=== PATIENT | male | born 1955 | race African-American/Black ===

== ENCOUNTER 2017-01-14 11:21 | Emergency (ER) | payer OTHER ==
[~2017-01-14 11:21] MED LIST: AMLO5TAB22 PO; BENZ1TAB PO; BUSP10 PO; DOCU1CAP39 PO; GABA300C3 PO; HYDR-3533 PO; LEVA750T PO; NAPR500 PO; OMEP20TA PO; PERP8TAB7 PO; TRAZ100 PO
[2017-01-14 11:25] VITALS: BP 180/88; PULSE 72; RESP 20; TEMP 98.8; O2SAT 99
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
[2017-01-14] MEDS ORDERED: ONDANSETRON HCL 4 MG/2 ML VIAL IV PUSH ONE (12:15)
[2017-01-14 12:40] LABS: AUTOMATED NEUTROPHIL # 3.5 TH/MM3 (1.8-7.7); BASOPHIL % 0.4 % (0.0-2.0); EOSINOPHIL % 0.4 % (0.0-4.0); HEMATOCRIT 50.8 % (39.0-51.0); HEMO FLAGS DIFF FINAL; LYMPH % 25.4 % (9.0-44.0); LYMPHOCYTE # 1.4 TH/MM3 (1.0-4.8); MEAN CORPUSCULAR HEMOGLOBIN 31.7 PG (27.0-34.0); MEAN CORPUSCULAR HGB CONC 33.4 % (32.0-36.0); MONO % 11.4 % (0.0-8.0); NEUT % 62.4 % (16.0-70.0); PLATELET COUNT 142 TH/MM3 (150-450); RED BLOOD COUNT 5.35 MIL/MM3 (4.50-5.90); RED CELL DISTRIBUTION WIDTH 14.2 % (11.6-17.2); WHITE BLOOD COUNT 5.6 TH/MM3 (4.0-11.0)
[2017-01-14 12:49] LABS: AMPHETAMINE, URINE NEG (NEG); BARBITURATES, URINE NEG (NEG); COCAINE, URINE NEG (NEG)
[2017-01-14 13:00] LABS: ALT (GPT) 91 U/L (12-78); ANION GAP 9 MEQ/L (5-15); AST (GOT) 59 U/L (15-37); BICARBONATE 23.6 MEQ/L (21.0-32.0); BLOOD UREA NITROGEN 10 MG/DL (7-18); CHLORIDE 105 MEQ/L (98-107); GLOMERULAR FILTRATION RATE 107 ML/MIN (>89); POTASSIUM 4.1 MEQ/L (3.5-5.1); SODIUM (NA) 138 MEQ/L (136-145)
[2017-01-14] MEDS ORDERED: BENZ1TAB PO (13:02)
[2017-01-14] MEDS ORDERED: GABA300C5 PO (13:02)
[2017-01-14] MEDS ORDERED: TRAZ100T4 PO (13:02)
[2017-01-14] MEDS ORDERED: BACL10TA PO (13:02)
[2017-01-14] MEDS ORDERED: ESCI10TA PO (13:02)
[2017-01-14] MEDS ORDERED: BUSP15TA PO (13:02)
[2017-01-14] MEDS ORDERED: AMLO5TAB2 PO (13:02)
[2017-01-14] MEDS ORDERED: PERP8TAB4 PO (13:02)
[2017-01-14 13:05] LABS: ALKALINE PHOSPHATASE 81 U/L (45-117); TOTAL BILIRUBIN ADULT 0.7 MG/DL (0.2-1.0)
[2017-01-14 14:10] VITALS: BP 150/80; PULSE 62; RESP 17; O2SAT 98
[2017-01-14 15:10] VITALS: BP 174/77; PULSE 83; RESP 18; O2SAT 99
[2017-01-14 17:39] VITALS: BP 180/73; PULSE 82; RESP 18; O2SAT 99
[2017-01-14 19:56] VITALS: BP 188/88; PULSE 77; RESP 18; O2SAT 99
--- NOTE | 2017-01-15 00:21 | PD ---
Physical Exam Date Seen by Provider: January 15, 2017 Time Seen by Provider: 00:18 Data Data Last Documented VS Vital Signs Date Time Temp Pulse Resp B/P Pulse Ox O2 Delivery O2 Flow Rate FiO2 01/14/17 19:56 77 18 188/88 99 Room Air 01/14/17 11:25 98.8 Orders Complete Blood Count With Diff (01/14/17 12:07) Comprehensive Metabolic Panel (01/14/17 12:07) Psych Screen (01/14/17 12:07) Drug Screen, Random Urine (01/14/17 12:07) Alcohol (Ethanol) (01/14/17 12:07) Ondansetron Inj (Zofran Inj) (01/14/17 12:15) Diet Regular Basic (01/14/17 Dinner) Labs Laboratory Tests Test 01/14/17 12:20 White Blood Count 5.6 TH/MM3 Red Blood Count 5.35 MIL/MM3 Hemoglobin 17.0 GM/DL Hematocrit 50.8 % Mean Corpuscular Volume 95.0 FL Mean Corpuscular Hemoglobin 31.7 PG Mean Corpuscular Hemoglobin 33.4 % Concent Red Cell Distribution Width 14.2 % Platelet Count 142 TH/MM3 Mean Platelet Volume 7.7 FL Neutrophils (%) (Auto) 62.4 % Lymphocytes (%) (Auto) 25.4 % Monocytes (%) (Auto) 11.4 % Eosinophils (%) (Auto) 0.4 % Basophils (%) (Auto) 0.4 % Neutrophils # (Auto) 3.5 TH/MM3 Lymphocytes # (Auto) 1.4 TH/MM3 Monocytes # (Auto) 0.6 TH/MM3 Eosinophils # (Auto) 0.0 TH/MM3 Basophils # (Auto) 0.0 TH/MM3 CBC Comment DIFF FINAL Differential Comment Sodium Level 138 MEQ/L Potassium Level 4.1 MEQ/L Chloride Level 105 MEQ/L Carbon Dioxide Level 23.6 MEQ/L Anion Gap 9 MEQ/L Blood Urea Nitrogen 10 MG/DL Creatinine 0.88 MG/DL Estimat Glomerular Filtration 107 ML/MIN Rate Random Glucose 86 MG/DL Calcium Level 9.9 MG/DL Total Bilirubin 0.7 MG/DL Aspartate Amino Transf 59 U/L (AST/SGOT) Alanine Aminotransferase 91 U/L (ALT/SGPT) Alkaline Phosphatase 81 U/L Total Protein 7.7 GM/DL Albumin 3.8 GM/DL Urine Opiates Screen NEG Urine Barbiturates Screen NEG Urine Amphetamines Screen NEG Urine Benzodiazepines Screen NEG Urine Cocaine Screen NEG Urine Cannabinoids Screen NEG Ethyl Alcohol Level LESS THAN 3 MG/DL MDM Medical Record Reviewed: Yes Supervised Visit with LEW: No Interpretation(s) Laboratory Tests Test 01/14/17 12:20 White Blood Count 5.6 TH/MM3 Red Blood Count 5.35 MIL/MM3 Hemoglobin 17.0 GM/DL Hematocrit 50.8 % Mean Corpuscular Volume 95.0 FL Mean Corpuscular Hemoglobin 31.7 PG Mean Corpuscular Hemoglobin 33.4 % Concent Red Cell Distribution Width 14.2 % Platelet Count 142 TH/MM3 Mean Platelet Volume 7.7 FL Neutrophils (%) (Auto) 62.4 % Lymphocytes (%) (Auto) 25.4 % Monocytes (%) (Auto) 11.4 % Eosinophils (%) (Auto) 0.4 % Basophils (%) (Auto) 0.4 % Neutrophils # (Auto) 3.5 TH/MM3 Lymphocytes # (Auto) 1.4 TH/MM3 Monocytes # (Auto) 0.6 TH/MM3 Eosinophils # (Auto) 0.0 TH/MM3 Basophils # (Auto) 0.0 TH/MM3 CBC Comment DIFF FINAL Differential Comment Sodium Level 138 MEQ/L Potassium Level 4.1 MEQ/L Chloride Level 105 MEQ/L Carbon Dioxide Level 23.6 MEQ/L Anion Gap 9 MEQ/L Blood Urea Nitrogen 10 MG/DL Creatinine 0.88 MG/DL Estimat Glomerular Filtration 107 ML/MIN Rate Random Glucose 86 MG/DL Calcium Level 9.9 MG/DL Total Bilirubin 0.7 MG/DL Aspartate Amino Transf 59 U/L (AST/SGOT) Alanine Aminotransferase 91 U/L (ALT/SGPT) Alkaline Phosphatase 81 U/L Total Protein 7.7 GM/DL Albumin 3.8 GM/DL Urine Opiates Screen NEG Urine Barbiturates Screen NEG Urine Amphetamines Screen NEG Urine Benzodiazepines Screen NEG Urine Cocaine Screen NEG Urine Cannabinoids Screen NEG Ethyl Alcohol Level LESS THAN 3 MG/DL Differential Diagnosis MDM: High Differential diagnoses: Schizophrenia, schizoaffective disorder, bipolar, anxiety, depression, adjustment reaction, mood disorder NOS, ODD, depressive disorder NOS, dementia, dementia with agitation, psychosis NOS, substance induced mood disorder, intermittent explosive disorder, Asperger syndrome, infection,electrolyte abnormality, malingering. Narrative Course Mental health screening discussed with the patient. Psychiatric screen ordered. The patient has been medically cleared. The patient has been seen by the psych screener. There is no indication for admission today. There is no indication for White act at this time patient is not a threat to himself or others. Patient has been given outpatient treatment information by the psych screener. The patient has verbally agreed to follow-up with [facility] the morning. Patient is medically stable for discharge. This is a counter for psychological evaluation. Diagnosis Primary Impression: Encounter for psychological evaluation Additional Impression: Encounter for medication refill Referrals: [facility] (Out patient) 1 day Patient Instructions: General Instructions Additional Instruction: Rest. Follow-up with [facility] in morning. Follow-up with the recommendations of the psych screener. Med/Other Pt SpecificInfo: No Meds Exist/No RX given Disposition: DISCHARGE HOME Condition: Stable Jose Juan Ornelas January 15, 2017 00:21
== END 2017-01-15 01:19 | disposition home or self-care (01) ==
LOC: NEPD 11:21
DX: R11.2 Nausea with vomiting, unspecified (principal); F41.8 Other specified anxiety disorders; B19.20 Unspecified viral hepatitis C without hepatic coma; I10 Essential (primary) hypertension; F20.9 Schizophrenia, unspecified; Z76.0 Encounter for issue of repeat prescription
CPT/HCPCS: 80053; 80307; 85025; 96374; 99283; J2405

== ENCOUNTER 2017-07-15 23:00 | Emergency (ER) | payer OTHER, MEDICAID ==
[~2017-07-15] VITALS: Ht 167.6 cm; Wt 65.9 kg
[~2017-07-15 23:00] MED LIST changes: +AMLO5TAB2 PO; -AMLO5TAB22 PO; +BACL10TA PO; -BUSP10 PO; +BUSP15TA PO; -DOCU1CAP39 PO; +ESCI10TA PO; -GABA300C3 PO; +GABA300C5 PO; -HYDR-3533 PO; -LEVA750T PO; -NAPR500 PO; -OMEP20TA PO; +PERP8TAB4 PO; -PERP8TAB7 PO; -TRAZ100 PO; +TRAZ100T4 PO
[2017-07-15 23:20] VITALS: BP 166/80; PULSE 78; RESP 16; TEMP 97.8; O2SAT 96
--- NOTE | 2017-07-16 00:20 | PD ---
HPI . Alcohol intoxication Chief Complaint: Alcohol/Drug Intoxication Time Seen by Provider: 00:09 Travel History International Travel<30 days: No Contact w/Intl Traveler<30days: No Traveled to known affect area: No History of Present Illness HPI This patient presents as a Marchman Act. He was apparently publicly intoxicated. The officers were concerned for his safety and took out a [place] Act. The patient is complaining with low back pain. PFSH Past Medical History Arthritis: Yes Asthma: Yes Autoimmune Disease: No Blood Disorders: No Bipolar Disorder: Yes Anxiety: Yes Depression: Yes Heart Rhythm Problems: No Cancer: No Cardiovascular Problems: Yes High Cholesterol: Yes Chemotherapy: No Chest Pain: No Congestive Heart Failure: No COPD: No Cerebrovascular Accident: No Diabetes: No Diminished Hearing: No Endocrine: No Gastrointestinal Disorders: Yes (hepatitis C ) GERD: No Glaucoma: No Genitourinary: No Headaches: No Hepatitis: Yes (hepatitis C ) Hiatal Hernia: No Hypertension: Yes Immune Disorder: No Implanted Vascular Access Dvce: No Kidney Stones: No Musculoskeletal: No Neurologic: Yes Psychiatric: Yes (schizophrenia) Reproductive: No Respiratory: Yes Immunizations Current: Yes Migraines: No Myocardial Infarction: No Radiation Therapy: No Renal Failure: No Schizophrenia: Yes Seizures: No Sickle Cell Disease: Yes Sleep Apnea: No Thyroid Disease: No Ulcer: No PNEUMOCCOCAL Vaccine (Year): 1 Past Surgical History Abdominal Surgery: No AICD: No Appendectomy: No Arteriovenous Shunt: No Cardiac Surgery: No Cholecystectomy: No Ear Surgery: No Endocrine Surgery: No Eye Surgery: No Genitourinary Surgery: No Gynecologic Surgery: No Insulin Pump: No Joint Replacement: No Neurologic Surgery: Yes Oral Surgery: No Pacemaker: No Thoracic Surgery: No Other Surgery: Yes Social History Alcohol Use: No (DENIES) Tobacco Use: Yes Substance Use: Yes Allergies-Medications (Allergen,Severity, Reaction): Coded Allergies: aspirin (Unverified Allergy, Severe, Hives, EDEMA, 07/15/17) codeine (Unverified Allergy, Severe, 07/15/17) divalproex sodium (Unverified Allergy, Severe, HALLUCINATIONS, 07/15/17) iodine (Unverified Allergy, Severe, EDEMA, HIVES, 07/15/17) potassium iodide (Unverified Allergy, Severe, EDEMA, HIVES, 07/15/17) povidone-iodine (Unverified Allergy, Severe, EDEMA, HIVES, 07/15/17) risperidone (Unverified Allergy, Severe, 07/15/17) sodium iodide (Unverified Allergy, Severe, EDEMA, HIVES, 07/15/17) sodium iodide (Unverified Allergy, Severe, EDEMA, HIVES, 07/15/17) Reported Meds & Prescriptions Reported Meds & Active Scripts Active Reported Trazodone (Trazodone HCl) 100 Mg Tab 100 Mg PO HS Perphenazine 8 Mg Tab 8 Mg PO DAILY Gabapentin 300 Mg Cap 300 Mg PO TID Escitalopram (Escitalopram Oxalate) 10 Mg Tab 10 Mg PO DAILY Buspirone (Buspirone HCl) 15 Mg Tab 15 Mg PO TID Benztropine (Benztropine Mesylate) 1 Mg Tab 1 Mg PO BID Baclofen 10 Mg Tab 10 Mg PO TID Amlodipine (Amlodipine Besylate) 5 Mg Tab 5 Mg PO DAILY Review of Systems ROS Limitations: Intoxication Physical Exam Narrative GENERAL: Patient is intoxicated. SKIN: Warm and dry. HEAD: Normocephalic/atraumatic. EYES: Pupils are equal. Extraocular movements are intact. ENT: Most of his teeth are missing. NECK: Supple. CARDIOVASCULAR: Heart sounds are normal. RESPIRATORY: Lungs are clear with full air movement throughout. MUSCULOSKELETAL: Atraumatic. NEUROLOGICAL: Nonfocal. PSYCHIATRIC: Intoxicated. Data Data Last Documented VS Vital Signs Date Time Temp Pulse Resp B/P (MAP) Pulse Ox O2 Delivery O2 Flow Rate FiO2 07/15/17 23:20 97.8 78 16 166/80 (108) 96 MDM Medical Decision Making Medical Screen Exam Complete: Yes Emergency Medical Condition: Yes Differential Diagnosis Differential diagnosis of altered mental status includes but is not limited to infection, electrolyte abnormality, neurological event, intoxication Narrative Course Patient presents to us as a Marchman act because of alcohol intoxication. He is sleeping it off. Diagnosis Primary Impression: Alcohol abuse Condition: Stable Christianne Hobson MD Jul 16, 2017 00:20
[2017-07-16] MEDS ORDERED: LORazepam 2 MG/ML VIAL IM ONE (01:15)
[2017-07-16] MEDS ORDERED: HALOPERIDOL LACTATE 5 MG/ML AMP IM ONE (02:15)
== END 2017-07-16 08:16 | disposition home or self-care (01) ==
LOC: NEPD 23:00
DX: F10.129 Alcohol abuse with intoxication, unspecified (principal); M54.5 Low back pain; I10 Essential (primary) hypertension; E78.00 Pure hypercholesterolemia, unspecified; Z72.0 Tobacco use; Z86.2 Personal history of diseases of the blood and blood-forming organs and certain disorders involving the immune mechanism; Z87.39 Personal history of other diseases of the musculoskeletal system and connective tissue; Z87.09 Personal history of other diseases of the respiratory system; Z86.59 Personal history of other mental and behavioral disorders; Z86.79 Personal history of other diseases of the circulatory system; Z87.19 Personal history of other diseases of the digestive system; Z86.19 Personal history of other infectious and parasitic diseases; Z86.69 Personal history of other diseases of the nervous system and sense organs; Y90.4 Blood alcohol level of 80-99 mg/100 ml; G89.29 Other chronic pain
CPT/HCPCS: 96372; 99284; J1630; J2060

== ENCOUNTER 2017-07-16 08:39 | Emergency (ER) | payer OTHER, MEDICAID ==
[2017-07-16 08:41] VITALS: BP 150/77; PULSE 89; RESP 14; TEMP 97.8; O2SAT 98
[2017-07-16 09:05] VITALS: BP 174/79; PULSE 86; RESP 18; O2SAT 98
--- NOTE | 2017-07-16 09:11 | PD ---
HPI Chief Complaint: Altered Mental Status Time Seen by Provider: 09:00 Travel History International Travel<30 days: No Contact w/Intl Traveler<30days: No Traveled to known affect area: No History of Present Illness HPI The patient is a 62-year-old male who presented to the emergency department as a Yahaira's act for alcohol intoxication. The patient was seen last night, no labs were drawn, the patient was allowed to sleep it off. According to nursing staff he was ambulatory in the [facility], however, when discharged the triage staff stated he had difficulty in relating. The patient is oriented to name and year, however, does not know his current location. He does admit to drinking alcohol. He denies any ingestion of any other medications. He does complain of intermittent chronic low back pain but denies any chest pain, shortness breath, nausea, vomiting, or abdominal pain. Symptoms are mild to moderate, possibly exacerbated by alcohol use, and there are no current alleviating factors. PFSH Past Medical History Arthritis: Yes Asthma: Yes Autoimmune Disease: No Blood Disorders: No Bipolar Disorder: Yes Anxiety: Yes Depression: Yes Heart Rhythm Problems: No Cancer: No Cardiovascular Problems: Yes High Cholesterol: Yes Chemotherapy: No Chest Pain: No Congestive Heart Failure: No COPD: No Cerebrovascular Accident: No Diabetes: No Diminished Hearing: No Endocrine: No Gastrointestinal Disorders: Yes (hepatitis C ) GERD: No Glaucoma: No Genitourinary: No Headaches: No Hepatitis: Yes (hepatitis C ) Hiatal Hernia: No Hypertension: Yes Immune Disorder: No Implanted Vascular Access Dvce: No Kidney Stones: No Musculoskeletal: No Neurologic: Yes Psychiatric: Yes (schizophrenia) Reproductive: No Respiratory: Yes Immunizations Current: Yes Migraines: No Myocardial Infarction: No Radiation Therapy: No Renal Failure: No Schizophrenia: Yes Seizures: No Sickle Cell Disease: Yes Sleep Apnea: No Thyroid Disease: No Ulcer: No PNEUMOCCOCAL Vaccine (Year): 1 Past Surgical History Abdominal Surgery: No AICD: No Appendectomy: No Arteriovenous Shunt: No Cardiac Surgery: No Cholecystectomy: No Ear Surgery: No Endocrine Surgery: No Eye Surgery: No Genitourinary Surgery: No Gynecologic Surgery: No Insulin Pump: No Joint Replacement: No Neurologic Surgery: Yes Oral Surgery: No Pacemaker: No Thoracic Surgery: No Other Surgery: Yes Social History Alcohol Use: No (DENIES) Tobacco Use: Yes Substance Use: Yes Allergies-Medications (Allergen,Severity, Reaction): Coded Allergies: aspirin (Unverified Allergy, Severe, Hives, EDEMA, 07/15/17) codeine (Unverified Allergy, Severe, 07/15/17) divalproex sodium (Unverified Allergy, Severe, HALLUCINATIONS, 07/15/17) iodine (Unverified Allergy, Severe, EDEMA, HIVES, 07/15/17) potassium iodide (Unverified Allergy, Severe, EDEMA, HIVES, 07/15/17) povidone-iodine (Unverified Allergy, Severe, EDEMA, HIVES, 07/15/17) risperidone (Unverified Allergy, Severe, 07/15/17) sodium iodide (Unverified Allergy, Severe, EDEMA, HIVES, 07/15/17) sodium iodide (Unverified Allergy, Severe, EDEMA, HIVES, 07/15/17) Reported Meds & Prescriptions Reported Meds & Active Scripts Active Reported Gabapentin 300 Mg Cap 300 Mg PO TID Escitalopram (Escitalopram Oxalate) 10 Mg Tab 10 Mg PO DAILY Buspirone (Buspirone HCl) 15 Mg Tab 15 Mg PO TID Baclofen 10 Mg Tab 10 Mg PO TID Amlodipine (Amlodipine Besylate) 5 Mg Tab 5 Mg PO DAILY Review of Systems Except as stated in HPI: all other systems reviewed are Neg General / Constitutional: No: Fever Cardiovascular: No: Chest Pain or Discomfort Respiratory: No: Shortness of Breath Gastrointestinal: No: Nausea, Vomiting, Abdominal Pain Musculoskeletal: Positive: Pain (chronic low back pain) Psychiatric: Positive: Substance Abuse (alcohol intoxication) Physical Exam Narrative GENERAL: Awake, alert, pleasant 62-year-old male who appears his stated age and is in no acute respiratory distress. SKIN: Focused skin assessment warm/dry. HEAD: Atraumatic. Normocephalic. EYES: Mild injection bilaterally. ENT: No nasal bleeding or discharge. Breath smells of alcohol. NECK: Trachea midline. No JVD. CARDIOVASCULAR: Regular rate and rhythm. No murmur appreciated. RESPIRATORY: No accessory muscle use. Clear to auscultation. Breath sounds equal bilaterally. GASTROINTESTINAL: Abdomen soft, non-tender, nondistended. No rebound tenderness. MUSCULOSKELETAL: No obvious deformities. No clubbing. No cyanosis. No edema. NEUROLOGICAL: Awake and alert. No obvious cranial nerve deficits. Motor grossly within normal limits. Normal speech. Oriented to name and year, but not location. PSYCHIATRIC: Appears intoxicated. Data Data Last Documented VS Vital Signs Date Time Temp Pulse Resp B/P (MAP) Pulse Ox O2 Delivery O2 Flow Rate FiO2 07/16/17 09:05 86 18 174/79 (110) 98 07/16/17 08:41 97.8 Orders Orders Alcohol (Ethanol) (07/16/17 09:05) Basic Metabolic Panel (Bmp) (07/16/17 09:05) Complete Blood Count With Diff (07/16/17 09:05) Ed Discharge Order (07/16/17 10:39) Labs Laboratory Tests Test 07/16/17 09:35 Blood Urea Nitrogen 8 MG/DL Creatinine 0.75 MG/DL Random Glucose 78 MG/DL Calcium Level 8.8 MG/DL Sodium Level 141 MEQ/L Potassium Level 4.7 MEQ/L Chloride Level 106 MEQ/L Carbon Dioxide Level 26.0 MEQ/L Anion Gap 9 MEQ/L Estimat Glomerular Filtration Rate 128 ML/MIN Ethyl Alcohol Level 82 MG/DL [facility] Medical Decision Making Medical Screen Exam Complete: Yes Emergency Medical Condition: Yes Medical Record Reviewed: Yes Interpretation(s) Laboratory Tests Test 07/16/17 09:35 Blood Urea Nitrogen 8 MG/DL Creatinine 0.75 MG/DL Random Glucose 78 MG/DL Calcium Level 8.8 MG/DL Sodium Level 141 MEQ/L Potassium Level 4.7 MEQ/L Chloride Level 106 MEQ/L Carbon Dioxide Level 26.0 MEQ/L Anion Gap 9 MEQ/L Estimat Glomerular Filtration Rate 128 ML/MIN Ethyl Alcohol Level 82 MG/DL Differential Diagnosis Differential diagnosis includes alcohol intoxication, hyponatremia, subdural hemorrhage, delirium, UTI, psychosis, encephalopathy. Narrative Course IV was established, labs were drawn and sent, and the patient was placed on cardiac telemetry monitoring and continuous pulse oximetry monitoring. Alcohol level and sodium level were sent to lab. The patient was able to ambulate to the bathroom and back to the room. Alcohol levels elevated at 82, sodium is normal. Patient is stable for discharge home. We will attempt to arrange transportation and/or ride from family to take the patient home. Diagnosis Primary Impression: Alcohol intoxication Qualified Codes: F10.920 - Alcohol use, unspecified with intoxication, uncomplicated Patient Instructions: General Instructions Additional Instructions: Decrease your alcohol consumption. Follow-up with a primary physician. Return if symptoms worsen or progress. Med/Other Pt SpecificInfo: No Change to Meds Disposition: 01 DISCHARGE HOME Condition: Stable Zeyad Gonzales MD Jul 16, 2017 09:11
[2017-07-16 10:26] LABS: POTASSIUM 4.7 MEQ/L (3.5-5.1)
== END 2017-07-16 12:49 | disposition home or self-care (01) ==
LOC: NEPD 08:39
DX: F10.920 Alcohol use, unspecified with intoxication, uncomplicated (principal); M54.5 Low back pain; G89.29 Other chronic pain; I10 Essential (primary) hypertension; E78.00 Pure hypercholesterolemia, unspecified; Z72.0 Tobacco use; Z86.2 Personal history of diseases of the blood and blood-forming organs and certain disorders involving the immune mechanism; Z87.39 Personal history of other diseases of the musculoskeletal system and connective tissue; Z87.09 Personal history of other diseases of the respiratory system; Z86.59 Personal history of other mental and behavioral disorders; Z86.79 Personal history of other diseases of the circulatory system; Z87.19 Personal history of other diseases of the digestive system; Z86.19 Personal history of other infectious and parasitic diseases; Z86.69 Personal history of other diseases of the nervous system and sense organs
CPT/HCPCS: 80048; 80307; 99283

== ENCOUNTER 2018-01-22 02:58 | Observation (INO) | payer OTHER, MEDICAID ==
[2018-01-22] VITALS (7 sets, daily range): BP systolic 132–150; BP diastolic 67–79; PULSE 64–80; RESP 14–20; TEMP 98.5–98.6; O2SAT 96–100
[~2018-01-22] VITALS: Ht 165.1 cm; Wt 65.0 kg
[~2018-01-22 02:58] MED LIST changes: -BENZ1TAB PO; -PERP8TAB4 PO; -TRAZ100T4 PO
[2018-01-22] MEDS ORDERED: SODIUM CHLORIDE 0.9% FLUSH 10 ML FLUSH IVF PRN (03:15)
--- NOTE | 2018-01-22 03:44 | PD ---
HPI Chief Complaint: Chest Pain Time Seen by Provider: 03:13 Travel History International Travel<30 days: No Contact w/Intl Traveler<30days: No Traveled to known affect area: No History of Present Illness HPI The patient is a 62 year old male who presents to the [facility] emergency department with a history of chest pain that began 2 weeks ago. The patient reports that the location of the pain is in the right side of his chest. He reports the pain is sharp in character and occurs when he takes a breath. He reports that is been constant since the onset. He reports that he has had a cough and congestion over that period of time. He reports that he has had a cough is been productive of yellow sputum. The patient reports that he does smoke a pack of cigarettes per day. He denies any prior history of coronary artery disease, however he does have a history of hypertension. He has an allergy to aspirin. He denies having any known recent fevers. He reports that it does make him feel short of breath as the pain catches his breath. On review of systems otherwise, the patient denies having any neck pain, abdominal pain, vomiting, diarrhea, urinary symptoms, or neurologic symptoms. [facility] Past Medical History Narrative Medical The patient's past medical history is significant for bipolar disorder, arthritis, hyperlipidemia, hepatitis C, hypertension, schizophrenia, sickle cell disease, chronic back pain. Arthritis: Yes Asthma: Yes Autoimmune Disease: No Blood Disorders: No Bipolar Disorder: Yes Anxiety: Yes Depression: Yes Heart Rhythm Problems: No Cancer: No Cardiovascular Problems: Yes High Cholesterol: Yes Chemotherapy: No Chest Pain: No Congestive Heart Failure: No COPD: No Cerebrovascular Accident: No Diabetes: No Diminished Hearing: No Endocrine: No Gastrointestinal Disorders: Yes (hepatitis C ) GERD: No Glaucoma: No Genitourinary: No Headaches: No Hepatitis: Yes (hepatitis C ) Hiatal Hernia: No Heparin Induced Thrombocytopen: No Hypertension: Yes Immune Disorder: No Implanted Vascular Access Dvce: No Kidney Stones: No Musculoskeletal: No Neurologic: Yes Psychiatric: Yes (schizophrenia) Reproductive: No Respiratory: Yes Immunizations Current: Yes Migraines: No Myocardial Infarction: No Radiation Therapy: No Renal Failure: No Schizophrenia: Yes Seizures: No Sickle Cell Disease: Yes Sleep Apnea: No Thyroid Disease: No Ulcer: No Tetanus Vaccination: Unknown Influenza Vaccination: No PNEUMOCCOCAL Vaccine (Year): 1 Past Surgical History Narrative Surgical The patient's past surgical history is significant for neck and back surgery. Abdominal Surgery: No AICD: No Appendectomy: No Arteriovenous Shunt: No Cardiac Surgery: No Cholecystectomy: No Ear Surgery: No Endocrine Surgery: No Eye Surgery: No Genitourinary Surgery: No Gynecologic Surgery: No Insulin Pump: No Joint Replacement: No Neurologic Surgery: Yes Oral Surgery: No Pacemaker: No Thoracic Surgery: No Other Surgery: Yes Social History Alcohol Use: Yes (1-2 beers daily) Tobacco Use: Yes (1 pack per day) Substance Use: No Allergies-Medications (Allergen,Severity, Reaction): Coded Allergies: aspirin (Unverified Allergy, Severe, Hives, EDEMA, 01/22/18) codeine (Unverified Allergy, Severe, 01/22/18) divalproex sodium (Unverified Allergy, Severe, HALLUCINATIONS, 01/22/18) iodine (Unverified Allergy, Severe, EDEMA, HIVES, 01/22/18) potassium iodide (Unverified Allergy, Severe, EDEMA, HIVES, 01/22/18) povidone-iodine (Unverified Allergy, Severe, EDEMA, HIVES, 01/22/18) risperidone (Unverified Allergy, Severe, 01/22/18) sodium iodide (Unverified Allergy, Severe, EDEMA, HIVES, 01/22/18) sodium iodide (Unverified Allergy, Severe, EDEMA, HIVES, 01/22/18) Reported Meds & Prescriptions Reported Meds & Active Scripts Active Reported Gabapentin 300 Mg Cap 300 Mg PO TID Escitalopram (Escitalopram Oxalate) 10 Mg Tab 10 Mg PO DAILY Buspirone (Buspirone HCl) 15 Mg Tab 15 Mg PO TID Baclofen 10 Mg Tab 10 Mg PO TID Amlodipine (Amlodipine Besylate) 5 Mg Tab 5 Mg PO DAILY Review of Systems Except as stated in HPI: all other systems reviewed are Neg General / Constitutional: No: Fever Eyes: No: Visual changes HENT: Positive: Congestion, No: Headaches Cardiovascular: Positive: Chest Pain or Discomfort, No: Dyspnea on exertion Respiratory: Positive: Cough, Shortness of Breath Gastrointestinal: Positive: Nausea, Vomiting, No: Abdominal Pain Genitourinary: No: Dysuria Musculoskeletal: No: Pain Skin: No Rash Neurologic: No: Weakness, Focal Abnormalities, Change in Mentation, Slurred Speech, Sensory Disturbance Psychiatric: No: Depression Endocrine: No: Polydipsia Hematologic/Lymphatic: No: Easy Bruising Physical Exam Narrative General: The patient is a well-developed well-nourished male in no acute distress. Head and Neck exam: Head is normocephalic atraumatic. Eyes: EOMI, pupils are equal round and reactive to light. Nose: Midline septum with pink mucous membranes Mouth: The patient has poor dentition throughout his mouth with multiple areas of decay. The patient has mild gingival erythema, no edema, or kurt abscess formation. Moist mucus membranes. Posterior oropharynx is not erythematous. No tonsillar hypertrophy. Uvula midline. Airway patent. Neck: No palpable lymphadenopathy. No nuchal rigidity. No thyromegaly. Cardiovascular: Regular rate and rhythm without murmurs, gallops, or rubs. No pulse deficit to the extremities on simultaneous auscultation and palpation of his radial artery. The patient denies having any chest wall tenderness on palpation. Lungs: The patient has decreased breath sounds in bilateral lung bases, crackles audible in the right lower lung base. No rhonchi, no wheezes. Abdomen: Soft, without tenderness to palpation in all 4 quadrants of the abdomen. No guarding, rebound, or rigidity. Normal bowel sounds are audible. No tenderness on palpation of McBurney's point. Negative Pate sign. Extremities: No clubbing, cyanosis, or edema. 2+ pulses in all 4 extremities. No calf tenderness on palpation. Back: No spinous process tenderness to palpation. No costovertebral angle tenderness to palpation. Neurologic Exam: Grossly nonfocal. Skin Exam: No rash noted. Intact skin that is warm and dry. Data Data Last Documented VS Vital Signs Date Time Temp Pulse Resp B/P (MAP) Pulse Ox O2 Delivery O2 Flow Rate FiO2 01/22/18 03:14 75 99 Room Air 01/22/18 03:14 20 144/77 (99) 01/22/18 03:01 98.6 Orders Orders Electrocardiogram (01/22/18 03:13) B-Type Natriuretic Peptide (01/22/18 03:13) Ckmb (Isoenzyme) Profile (01/22/18 03:13) Complete Blood Count With Diff (01/22/18 03:13) Comprehensive Metabolic Panel (01/22/18 03:13) Magnesium (Mg) (01/22/18 03:13) Prothrombin Time / Inr (Pt) (01/22/18 03:13) Act Partial Throm Time (Ptt) (01/22/18 03:13) Troponin I (01/22/18 03:13) Lipase (01/22/18 03:13) Chest, Single Ap (01/22/18 03:13) Ecg Monitoring (01/22/18 03:13) Bilateral Bp Monitoring (01/22/18 03:13) Iv Access Insert/Monitor (01/22/18 03:13) Oximetry (01/22/18 03:13) Oxygen Administration (01/22/18 03:13) Sodium Chloride 0.9% Flush (Ns Flush) (01/22/18 03:15) CKMB (01/22/18 03:50) CKMB% (01/22/18 03:50) D-Dimer (01/22/18 04:34) Morphine Inj (Morphine Inj) (01/22/18 04:45) Ondansetron Odt (Zofran Odt) (01/22/18 04:45) Levofloxacin 750 Mg Premix Inj (Levaquin (01/22/18 04:45) Morphine Inj (Morphine Inj) (01/22/18 05:45) Admit Order (Ed Use Only) (01/22/18 05:37) Labs Laboratory Tests Test 01/22/18 03:50 White Blood Count 8.2 TH/MM3 Red Blood Count 5.09 MIL/MM3 Hemoglobin 15.8 GM/DL Hematocrit 46.8 % Mean Corpuscular Volume 91.8 FL Mean Corpuscular Hemoglobin 30.9 PG Mean Corpuscular Hemoglobin Concent 33.7 % Red Cell Distribution Width 13.4 % Platelet Count 169 TH/MM3 Mean Platelet Volume 7.3 FL Neutrophils (%) (Auto) 49.8 % Lymphocytes (%) (Auto) 37.8 % Monocytes (%) (Auto) 8.7 % Eosinophils (%) (Auto) 3.1 % Basophils (%) (Auto) 0.6 % Neutrophils # (Auto) 4.1 TH/MM3 Lymphocytes # (Auto) 3.1 TH/MM3 Monocytes # (Auto) 0.7 TH/MM3 Eosinophils # (Auto) 0.3 TH/MM3 Basophils # (Auto) 0.0 TH/MM3 CBC Comment DIFF FINAL Differential Comment Prothrombin Time 10.4 SEC Prothromb Time International Ratio 1.0 RATIO Activated Partial Thromboplast Time 27.3 SEC D-Dimer Quantitative (PE/DVT) 0.29 MG/L FEU Blood Urea Nitrogen 11 MG/DL Creatinine 0.99 MG/DL Random Glucose 79 MG/DL Total Protein 7.7 GM/DL Albumin 3.6 GM/DL Calcium Level 8.4 MG/DL Magnesium Level 2.1 MG/DL Alkaline Phosphatase 91 U/L Aspartate Amino Transf (AST/SGOT) 30 U/L Alanine Aminotransferase (ALT/SGPT) 44 U/L Total Bilirubin 0.3 MG/DL Sodium Level 143 MEQ/L Potassium Level 3.8 MEQ/L Chloride Level 106 MEQ/L Carbon Dioxide Level 27.5 MEQ/L Anion Gap 10 MEQ/L Estimat Glomerular Filtration Rate 93 ML/MIN Total Creatine Kinase 159 U/L Creatine Kinase MB 1.5 NG/ML Troponin I LESS THAN 0.02 NG/ML B-Type Natriuretic Peptide 15 PG/ML Lipase 61 U/L MDM Medical Decision Making Medical Screen Exam Complete: Yes Emergency Medical Condition: Yes Medical Record Reviewed: Yes Differential Diagnosis pneumonia, versus pulmonary embolism, versus pneumothorax, versus acute coronary syndrome Narrative Course During the course of the patient's emergency department visit, the patient's history, examination, and differential diagnosis were reviewed with the patient. The patient was placed on a cardiac rehabilitation specialist with oximetry and frequent blood pressure monitoring. The patient had IV access obtained and blood work sent for analysis. The patient had a EKG done on arrival that shows a sinus rhythm heart rate of 74, QRS duration 87 ms, QTC [address] segment elevation is noted. T waves are inverted in V1. I reviewed the patient's electronic medical record reveals that the patient has come in on multiple occasions with chest pain. In fact at one point he was called as a STEMI alert , however this was canceled. I do not see any prior evidence of the patient having stress testing done or cardiac catheterization completed. Wells score in this patient for PE was 0. PERC score is 1, therefore a d-dimer has been ordered. The patient was initially provided morphine for pain, Zofran for nausea. The patient was given nitroglycerin 1 inch of paste to the chest wall. The patient's laboratory studies were reviewed and remarkable for a white count of 8.2, hemoglobin 15.8, platelets 169 with 8.7 monocytes, CMP is remarkable for calcium of 8.4, cardiac enzymes are negative, BNP is 15, lipase 61. PT 10.4, PTT 27.3. D-dimer is 0.29 decreasing likelihood of pulmonary embolism in this patient with no other significant risk factors. Radiology studies were reviewed and remarkable for a chest x-ray that showed no evidence of acute cardiopulmonary disease. As the patient's pain could be related to bronchitis versus pleurisy, the patient was given a dose of antibiotic as he reports that his cough has been present for 2 weeks. I reviewed the patient's electronic medical record reveals that the patient has come in on multiple occasions with chest pain. In fact at one point he was called as a STEMI alert, however this was canceled. I do not see any prior evidence of the patient having stress testing done or cardiac catheterization completed. Unfortunately, the patient is not a great historian regarding his medical history. The patient has multiple risk factors for coronary artery disease and although the patient's chest pain is atypical, the patient will be admitted to the chest pain center for rule out serial cardiac enzyme protocol followed by stress testing. The patient's results were discussed with the patient, including the plan of care. I explained that further testing and/ or monitoring is indicated based on the patient's history, examination, and/ or laboratory findings. Therefore, I recommended admission for additional evaluation. The patient expressed understanding and was agreeable with this plan. The patient was admitted to the hospital in stable condition and sent to a bed under the care of chest pain center. Diagnosis Primary Impression: Chest pain Qualified Codes: R07.9 - Chest pain, unspecified Additional Impression: Bronchitis Admitting Information Admitting Physician Requests: Observation Scripts Levofloxacin (Levaquin) 750 Mg Tablet 750 MG PO DAILY for Infection for 6 Days, #6 TAB 0 Refills Prov: Kristal Snell MD 01/22/18 Kristal Snell MD January 22, 2018 03:44
[2018-01-22 04:04] LABS: AUTOMATED NEUTROPHIL # 4.1 TH/MM3 (1.8-7.7); BASOPHIL % 0.6 % (0.0-2.0); EOSINOPHIL # 0.3 TH/MM3 (0-0.4); EOSINOPHIL % 3.1 % (0.0-4.0); HEMATOCRIT 46.8 % (39.0-51.0); HEMOGLOBIN 15.8 GM/DL (13.0-17.0); LYMPH % 37.8 % (9.0-44.0); LYMPHOCYTE # 3.1 TH/MM3 (1.0-4.8); MEAN CELL VOLUME 91.8 FL (80.0-100.0); MEAN CORPUSCULAR HEMOGLOBIN 30.9 PG (27.0-34.0); MEAN CORPUSCULAR HGB CONC 33.7 % (32.0-36.0); MEAN PLATELET VOLUME 7.3 FL (7.0-11.0); MONO % 8.7 % (0.0-8.0); MONOCYTE # 0.7 TH/MM3 (0-0.9); NEUT % 49.8 % (16.0-70.0); PLATELET COUNT 169 TH/MM3 (150-450); RED BLOOD COUNT 5.09 MIL/MM3 (4.50-5.90); RED CELL DISTRIBUTION WIDTH 13.4 % (11.6-17.2); WHITE BLOOD COUNT 8.2 TH/MM3 (4.0-11.0)
[2018-01-22 04:24] LABS: ALBUMIN 3.6 GM/DL (3.4-5.0); ALT (GPT) 44 U/L (12-78); AST (GOT) 30 U/L (15-37); BICARBONATE 27.5 MEQ/L (21.0-32.0); BLOOD UREA NITROGEN 11 MG/DL (7-18); CALCIUM 8.4 MG/DL (8.5-10.1); CHLORIDE 106 MEQ/L (98-107); CREATININE 0.99 MG/DL (0.60-1.30); GLOMERULAR FILTRATION RATE 93 ML/MIN (>89); GLUCOSE,RANDOM 79 MG/DL (74-106); MAGNESIUM 2.1 MG/DL (1.5-2.5); PROTHROMBIN TIME - PATIENT 10.4 SEC (9.8-11.6); SODIUM (NA) 143 MEQ/L (136-145)
[2018-01-22 04:28] LABS: ALKALINE PHOSPHATASE 91 U/L (45-117); TOTAL BILIRUBIN ADULT 0.3 MG/DL (0.2-1.0); TOTAL PROTEIN 7.7 GM/DL (6.4-8.2); TROPONIN I LESS THAN 0.02 NG/ML (0.02-0.05)
--- NOTE | 2018-01-22 04:36 | RADRPT ---
EXAM DATE: 01/22/2018 4:15 AM EDT AGE/SEX: 62 years / Male INDICATIONS: Chest pain. CLINICAL DATA: This is the patient's initial encounter. Patient reports that signs and symptoms have been present for 1 day and indicates a pain score of 6/10. MEDICAL/SURGICAL HISTORY: . Hypertension. Cardiovascular disease Hepatitis C None. [place] [facility] [place]. . FINDINGS: A single AP view of the chest demonstrates the lungs to be symmetrically aerated without evidence of mass, infiltrate or effusion. The cardiomediastinal contours are unremarkable. Osseous structures a re intact. CONCLUSION: Stable appearance with no acute cardiopulmonary disease. Electronically signed by: Getachew Arriola MD 01/22/2018 4:34 AM EDT
[2018-01-22] MEDS ORDERED: ONDANSETRON ODT 4 MG TAB PO ONE (04:45)
[2018-01-22] MEDS ORDERED: LEVOFLOXACIN 750 MG PREMIX INJ 150 ML IV ONE (04:45)
[2018-01-22] MEDS ORDERED: MORPHINE SULFATE 2 MG/ML SYRINGE IV PUSH ONE (04:45)
[2018-01-22] MEDS ORDERED: MORPHINE SULFATE 4 MG/ML INJ IV PUSH ONE (05:45)
[2018-01-22] MEDS ORDERED: NITROGLYCERIN 2% OINT 1 GM PACKET TOPICAL ONE (06:00)
[2018-01-22] MEDS ORDERED: LEVA750T9 PO (06:03)
[2018-01-22] MEDS ORDERED: SODIUM CHLORIDE 0.9% FLUSH 10 ML FLUSH IV FLUSH PRN (06:15)
[2018-01-22] MEDS ORDERED: ACETAMINOPHEN 500 MG CPLT PO PRN (06:15)
[2018-01-22 08:47] LABS: TROPONIN I LESS THAN 0.02 NG/ML (0.02-0.05)
[2018-01-22] MEDS ORDERED: SODIUM CHLORIDE 0.9% FLUSH 10 ML FLUSH IV FLUSH SCH (09:00)
[2018-01-22] MEDS ORDERED: FAMOTIDINE 20 MG TAB PO SCH (09:00)
--- NOTE | 2018-01-22 09:19 | HHI.HP ---
[facility] Primary Care Physician Capri Alcantara MD Chief Complaint Chest pain and cough History of Present Illness This is a 62-year-old male the presents to ED via private vehicle with his with a complaint of 1 weeks constant right-sided chest discomfort. States it is worsened when he coughs. States that he has had a yellowish color productive cough also for the past week. He has had no shortness of breath, nausea, or diaphoresis. Denies fever. Denies history of CAD. Upon reviewing records, patient was brought in as a STEMI alert November 11, 2015. EKG was reviewed by the on-call STEMI radiologist and the STEMI was canceled. ST elevations were found to be likely early repolarization and was on a prior EKG. Cannot recall ever having a stress test or heart catheterization. (Todd Shirley) Review of Systems General: Patient denies fevers, chills, and recent travel. HEENT: Patient denies headache, sore throat, difficulty swallowing. Cardiovascular: Has the chest discomfort as mentioned above. Denies sensation of heart beating rapidly or irregularly. No syncope. Denies diaphoresis. Respiratory: He has had a yellowish color productive cough for the past week. Denies shortness of breath or inspirational chest discomfort. Denies wheezing or hemoptysis. GI: Patient denies nausea, vomiting, diarrhea, abdominal pain, bloody stools. Musculoskeletal: Patient denies joint pain or edema. Denies calf pain or edema. Neurovascular: Patient denies numbness, tingling, weakness in extremities. Denies headache. Endocrine: Denies polyuria and polydipsia. Hematologic: Denies easy bruising. Skin: Denies rash or itching. (Todd Shirley) Past Family Social History Allergies: Coded Allergies: aspirin (Unverified Allergy, Severe, Hives, EDEMA, 01/22/18) codeine (Unverified Allergy, Severe, 01/22/18) divalproex sodium (Unverified Allergy, Severe, HALLUCINATIONS, 01/22/18) iodine (Unverified Allergy, Severe, EDEMA, HIVES, 01/22/18) potassium iodide (Unverified Allergy, Severe, EDEMA, HIVES, 01/22/18) povidone-iodine (Unverified Allergy, Severe, EDEMA, HIVES, 01/22/18) risperidone (Unverified Allergy, Severe, 01/22/18) sodium iodide (Unverified Allergy, Severe, EDEMA, HIVES, 01/22/18) sodium iodide (Unverified Allergy, Severe, EDEMA, HIVES, 01/22/18) Past Medical History Hypertension, schizophrenia, tobacco abuse. Denies hyperlipidemia, diabetes, and CAD. Past Surgical History Back and neck surgery. Reported Medications Reported Meds & Active Scripts Active Levaquin (Levofloxacin) 750 Mg Tablet 750 Mg PO DAILY 6 Days Reported Gabapentin 300 Mg Cap 300 Mg PO TID Escitalopram (Escitalopram Oxalate) 10 Mg Tab 10 Mg PO DAILY Buspirone (Buspirone HCl) 15 Mg Tab 15 Mg PO TID Baclofen 10 Mg Tab 10 Mg PO TID Amlodipine (Amlodipine Besylate) 5 Mg Tab 5 Mg PO DAILY Active Ordered Medications Current Medications Medications (Trade) Dose Ordered Sig/Madalyn Route Start Time Stop Time Status Last Admin (NS Flush) 2 ml UNSCH PRN IV FLUSH 01/22/18 06:15 (NS Flush) 2 ml BID IV FLUSH 01/22/18 09:00 (Tylenol) 500 mg Q4H PRN PO 01/22/18 06:15 (Pepcid) 20 mg BID PO 01/22/18 09:00 Family History Denies family history of CAD. Social History Smokes 1 pack of cigarettes daily for 40 years. He drinks on average 2-3 beers per week. States he was a heavier drinker than that. States he regularly attends AA meetings. Denies illicit drugs. He is . (Todd Shirley) Physical Exam Vital Signs Vital Signs Date Time Temp Pulse Resp B/P (MAP) Pulse Ox O2 Delivery O2 Flow Rate FiO2 01/22/18 07:27 67 14 143/79 (100) 96 Room Air 01/22/18 06:10 75 16 132/67 (88) 100 Room Air 01/22/18 06:07 100 01/22/18 03:14 75 99 Room Air 01/22/18 03:14 79 20 144/77 (99) 99 01/22/18 03:01 98.6 80 16 150/72 (98) 98 Physical Exam GENERAL: This is a well-nourished, well-developed patient, in no apparent distress. Patient speaks in clear complete sentences. Patient is pleasant. HEENT: Head is atraumatic and normocephalic. Neck is supple without lymphadenopathy and trachea is midline. No JVD or carotid bruits. CARDIOVASCULAR: Regular rate and rhythm without murmurs, gallops, or rubs. RESPIRATORY: Clear to auscultation. Breath sounds equal bilaterally. No wheezes , rales, or rhonchi. There is right-sided chest wall tenderness. No use of accessory muscles. GASTROINTESTINAL: Abdomen is nontender, nondistended. Abdomen soft. No obvious pulsatile mass or bruit. No CVA tenderness. Strong femoral pulses bilaterally. Normal bowel sounds in all quadrants. MUSCULOSKELETAL: Patient is moving upper and lower extremities freely. No calf tenderness or edema, no Homans sign. Strong pulses in upper and lower extremities. NEUROLOGICAL: Patient is alert and oriented. Cranial nerves 2-12 are grossly intact. No focal deficits and speech is clear. SKIN: No rash and turgor is normal. Laboratory Laboratory Tests Test 01/22/18 03:50 01/22/18 07:25 White Blood Count 8.2 Red Blood Count 5.09 Hemoglobin 15.8 Hematocrit 46.8 Mean Corpuscular Volume 91.8 Mean Corpuscular Hemoglobin 30.9 Mean Corpuscular Hemoglobin Concent 33.7 Red Cell Distribution Width 13.4 Platelet Count 169 Mean Platelet Volume 7.3 Neutrophils (%) (Auto) 49.8 Lymphocytes (%) (Auto) 37.8 Monocytes (%) (Auto) 8.7 Eosinophils (%) (Auto) 3.1 Basophils (%) (Auto) 0.6 Neutrophils # (Auto) 4.1 Lymphocytes # (Auto) 3.1 Monocytes # (Auto) 0.7 Eosinophils # (Auto) 0.3 Basophils # (Auto) 0.0 CBC Comment DIFF FINAL Differential Comment Prothrombin Time 10.4 Prothromb Time International Ratio 1.0 Activated Partial Thromboplast Time 27.3 D-Dimer Quantitative (PE/DVT) 0.29 Blood Urea Nitrogen 11 Creatinine 0.99 Random Glucose 79 Total Protein 7.7 Albumin 3.6 Calcium Level 8.4 Magnesium Level 2.1 Alkaline Phosphatase 91 Aspartate Amino Transf (AST/SGOT) 30 Alanine Aminotransferase (ALT/SGPT) 44 Total Bilirubin 0.3 Sodium Level 143 Potassium Level 3.8 Chloride Level 106 Carbon Dioxide Level 27.5 Anion Gap 10 Estimat Glomerular Filtration Rate 93 Total Creatine Kinase 159 165 Creatine Kinase MB 1.5 1.4 Troponin I LESS THAN 0.02 LESS THAN 0.02 B-Type Natriuretic Peptide 15 Lipase 61 (Todd Shirley) Physical Exam On my exam the patient was somewhat tremulous and indicated pain with both cough and deep breath. Eves were injected and bilateral cataracts Crackles noted at left base but cleared with cough (Johnathan Pierce MD) Result Diagram: 01/22/18 0350 01/22/18 035 Imaging Last 48 hours Impressions Chest X-Ray 01/22/18 0313 Signed Impressions: CONCLUSION: Course EKGs have early repolarization. (Todd Shirley) Caprini VTE Risk Assessment Caprini VTE Risk Assessment: Mod/High Risk (score >= 2) Caprini Risk Assessment Model Point Value = 1 Point Value = 2 Point Value = 3 Point Value = 5 Age 41-60 Minor surgery BMI > 25 kg/m2 Swollen legs Varicose veins or History of unexplained or recurrent spontaneous Oral contraceptives or hormone replacement Sepsis (< 1 month) Serious lung disease, including pneumonia (< 1 month) Abnormal pulmonary function Acute myocardial infarction Congestive heart failure (< 1 month) History of inflammatory bowel disease Medical patient at bed rest Age 61-74 Arthroscopic surgery Major open surgery (> 45 min) Laparoscopic surgery (> 45 min) Malignancy Confined to bed (> 72 hours) Immobilizing plaster cast Central venous access Age >= 75 History of VTE Family history of VTE Factor V Leiden Prothrombin [id number] Lupus anticoagulant Anticardiolipin antibodies Elevated serum homocysteine Heparin-induced thrombocytopenia Other congenital or acquired thrombophilia Stroke (< 1 month) Elective arthroplasty Hip, pelvis, or leg fracture Acute spinal cord injury (< 1 month) Prophylaxis Regimen Total Risk Factor Score Risk Level Prophylaxis Regimen 0-1 Low Early ambulation 2 Moderate Order ONE of the following: *Sequential Compression Device (SCD) *Heparin 5000 units SQ BID 3-4 Higher Order ONE of the following medications: *Heparin 5000 units SQ TID *Enoxaparin/Lovenox 40 mg SQ daily (WT < 150 kg, CrCl > 30 mL/min) *Enoxaparin/Lovenox 30 mg SQ daily (WT < 150 kg, CrCl > 10-29 mL/min) *Enoxaparin/Lovenox 30 mg SQ BID (WT < 150 kg, CrCl > 30 mL/min) AND/OR *Sequential Compression Device (SCD) 5 or more Highest Order ONE of the following medications: *Heparin 5000 units SQ TID (Preferred with Epidurals) *Enoxaparin/Lovenox 40 mg SQ daily (WT < 150 kg, CrCl > 30 mL/min) *Enoxaparin/Lovenox 30 mg SQ daily (WT < 150 kg, CrCl > 10-29 mL/min) *Enoxaparin/Lovenox 30 mg SQ BID (WT < 150 kg, CrCl > 30 mL/min) AND *Sequential Compression Device (SCD) (Todd Shirley) Assessment and Plan Assessment and Plan * Chest pain: Patient has had first 2 sets of cardiac enzymes and EKGs for ruling out purposes. Patient was seen by Dr. Pierce of cardiology in the chest pain center. He will undergo a Lexiscan. Patient will be discharged home if the stress test is nonischemic with instructions to follow-up with PCP. Return to ED for interval issues. ER physician has a prescription for Levaquin for the patient for bronchitis. * Bronchitis: Refill prescription. Quit smoking. * Tobacco abuse: Patient has been counseled on the importance of smoking cessation. * Hypertension: Continue medication. * Schizophrenia: Continue medication. Patient is stable at this time. He is agreeable to this plan. (Todd Shirley) Assessment and Plan The patient was presented by Mr. Kaminski and then seen and examined personally. I am in agreement with the plan as discussed and the documentation above. (Johnathan Pierce MD) Todd Shirley January 22, 2018 09:19 Johnathan Pierce MD January 22, 2018 09:33
[2018-01-22] MEDS ORDERED: amLODIPine BESYLATE 5 MG TAB PO SCH (09:30)
[2018-01-22] MEDS ORDERED: ESCITALOPRAM OXALATE 10 MG TAB PO SCH (09:30)
[2018-01-22 11:15] LABS: TROPONIN I LESS THAN 0.02 NG/ML (0.02-0.05)
[2018-01-22] MEDS ORDERED: REGADENOSON INJ 0.4 MG/5 ML SYR ONE (12:26)
[2018-01-22] MEDS ORDERED: GABAPENTIN 300 MG CAP PO SCH (13:00)
[2018-01-22] MEDS ORDERED: busPIRone HCL 5 MG TAB PO SCH (13:00)
[2018-01-22] MEDS ORDERED: BACLOFEN 10 MG TAB PO SCH (13:00)
--- NOTE | 2018-01-22 14:40 | RADRPT ---
EXAM DATE: 01/22/2018 2:34 PM EDT AGE/SEX: 62 years / Male INDICATIONS:Angina. . Right chest pain. CLINICAL DATA: This is the patient's initial encounter. Patient reports that signs and symptoms have been present for 2 weeks and indicates a pain score of 7/10. MEDICAL/SURGICAL HISTORY: Hypercholesterolemia. Hypertension. Smoker. Sickle cell disease. No n-responsive. Back and neck. COMPARISON: No prior [facility] exams available for comparison. No external comparison. DOSE: 25.4 mCi Tc 99m Myoview at stress 8.5 mCi [id number] at rest 0.4 mg Lexiscan STRESS SYMPTOMS: None noted. EJECTION FRACTION: 55 % TECHNIQUE: The patient underwent pharmacologic stress with infusion of prescribed dose. Continuous ECG tracing was monitored during stress. Gated SPECT imaging was performed after stress and conventi onal SPECT imaging was performed at rest. The examination was performed on a SPECT/CT scanner, both attenuation and non-corrected datasets were reviewed. FINDINGS: Distribution: The maximum perfused segment at stress is equally distributed between the lateral and inferoseptal ornelas. Image sets were normalized to the lateral wall wall. Perfusion Study: The pattern of perfusion at stress is within normal limits. Gated Study: There are intact wall motion and wall thickening without hypokinetic or dyskinetic segm ents. The ejection fraction is calculated at 55%. RISK CATEGORY: Low (<1% Annual Motality Rate) CONCLUSION: 1. No scintigraphic findings of infarct or ischemia. 2. Adequate wall motion throughout with an estimated ejection fraction of 55%. Electronically signed by: Derrick Yang MD 01/22/2018 2:38 PM EDT
--- NOTE | 2018-01-22 14:49 | HHI.DCPOC ---
Discharge Care Plan Diagnosis: (1) Chest pain (2) Bronchitis (3) Tobacco abuse (4) Hypertension Goals to Promote Your Health * To prevent worsening of your condition and complications * To maintain your health at the optimal level Directions to Meet Your Goals Take your medications as prescribed Follow your dietary instruction Follow activity as directed Keep your appointments as scheduled Take your immunizations and boosters as scheduled If your symptoms worsen call your PCP, if no PCP go to Urgent Care Center or Emergency Room Smoking is Dangerous to Your Health. Avoid second hand smoke Call the 24-hour hour crisis hotline for domestic abuse at [facility] January 22, 2018 14:49
--- NOTE | 2018-01-23 15:56 | EKG ---
Date Performed: 01/22/2018 Time Performed: 07:20:17 PTAGE: 62 years EKG: Sinus rhythm WITH FIRST DEGREE AV BLOCK ABNORMAL ECG INTERPRETATION BASED ON A DEFAULT AGE OF 40 YEARS Early repo larization but no change NO PREVIOUS TRACING DOCTOR: Johnathan Pierce Interpretating Date/Time 01/23/2018 15:55:03
--- NOTE | 2018-01-23 15:57 | EKG ---
Date Performed: 01/22/2018 Time Performed: 04:02:44 PTAGE: 62 years EKG: Sinus rhythm POSSIBLE RIGHT VENTRICULAR CONDUCTION DELAY BORDERLINE ECG Early repolarization but no significant c radha PREVIOUS TRACING : 06/08/2016 05.09 DOCTOR: Johnathan Pierce Interpretating Date/Time 01/23/2018 15:55:40
--- NOTE | 2018-01-23 16:03 | TR ---
Date Performed: 01/22/2018 Time Performed: 12:42:23 DOCTOR: Johnathan Pierce DRUG LIST: CLINICAL HISTORY: REASON FOR TEST: Angina REASON FOR ENDING: OBSERVATION: CONCLUSION: Lexiscan stress test was performed under standard four minute protocol. Radionuclide was injected one minute prior to ending the test. No electrocardiographic abormalities were present to suggest ischemia. Nuclear imaging and interpretation are pending. COMMENTS:
== END 2018-01-22 16:53 | disposition home or self-care (01) ==
LOC: NEPE 02:58 → NEDA 05:39 → NEPHCDU 12:48
PROVIDERS: ADMIT Internal Medicine Cardiovascular Disease; ATTEND Internal Medicine Cardiovascular Disease
DX: R07.9 Chest pain, unspecified (principal); I10 Essential (primary) hypertension; J40 Bronchitis, not specified as acute or chronic; E78.5 Hyperlipidemia, unspecified; R94.31 Abnormal electrocardiogram [ECG] [EKG]; D57.1 Sickle-cell disease without crisis; F17.210 Nicotine dependence, cigarettes, uncomplicated; F20.9 Schizophrenia, unspecified; F31.9 Bipolar disorder, unspecified; M54.9 Dorsalgia, unspecified; G89.29 Other chronic pain; E78.00 Pure hypercholesterolemia, unspecified; Z88.6 Allergy status to analgesic agent
CPT/HCPCS: 71045; 78452; 80053; 82550; 82552; 83690; 83735; 83880; 84484; 85025; 85379; 85610; 85730; 93005; 93017; 96365; 96375; 99285; A9502; G0378; J1956; J2270; J2785